=== PATIENT | male | born 1975 | race Caucasian/White ===

== ENCOUNTER 2017-10-15 10:07 | Outpatient (CLI) | payer BC ==
--- NOTE | 2017-10-15 12:26 | RAD ---
FOUR VIEWS LUMBAR SPINE: DATE: 10/15/17. HISTORY: Lumbar radiculopathy. The patient has low back pain and right toe numbness. History of prior lumbar surgery. COMPARISON: None available. 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 Lumbar vertebral bodies will be numbered L1 through L5 with postsurg ical changes at the lumbosacral junction which will be labeled L5-S1 with bipedicular screws and post erior rods transfixing this level. No hardware complication is seen. The vertebral body heights are within normal limits. There is grade I anterolisthesis of L4 and L5 noted on flexion which measures approximately 5 mm, which does correct with extension and with neutral positioning. No additional l evel of subluxation is seen and there is no fracture. Phleboliths overlie the left hemipelvis. IMPRESSION: 1. Anterolisthesis of L4 and L5 seen only on flexion, and this does correct with extension and neutr al positioning. 2. Posterior fusion lumbosacral junction. POS: OPAL
== END 2017-10-15 10:08 | disposition home or self-care (01) ==
LOC: TBSIIMAG 10:07
PROVIDERS: ATTEND Neurological Surgery
DX: M54.16 Radiculopathy, lumbar region (principal); M43.16 Spondylolisthesis, lumbar region; Z98.1 Arthrodesis status
CPT/HCPCS: 72120